=== PATIENT | female | born 1965 | race Caucasian/White ===

== ENCOUNTER 2017-04-21 22:06 | Emergency (ER) | payer MEDICAID ==
[~2017-04-21] VITALS: Ht 154.9 cm; Wt 59.0 kg
[2017-04-21 22:35] VITALS: BP 154/88
== END 2017-04-22 00:56 | disposition left against medical advice (07) ==
LOC: EDBD 22:06 → ER 22:17
DX: R51 Headache (principal); I10 Essential (primary) hypertension; Z53.21 Procedure and treatment not carried out due to patient leaving prior to being seen by health care provider

== ENCOUNTER 2017-04-22 01:41 | Emergency (ER) | payer MEDICAID ==
[~2017-04-22] VITALS: Ht 154.9 cm; Wt 59.0 kg
[2017-04-22] MEDS ORDERED: SODIUM CHLORIDE 0.9% 1,000 ML IV ONE (07:32)
[2017-04-22 08:50] LABS: Basophils # (auto) 0 uL; Basophils % (auto) 0.3 % (0.0-2.0); CONDITION Y; Eosinophils # (auto) 0.2 uL; Eosinophils % (auto) 2.6 % (0.0-7.0); Hemoglobin 15.7 g/dL (12.2-16.2); Lymphocytes # (auto) 2.4 uL; Lymphocytes % (auto) 27.9 % (10.0-50.0); Mean Corpuscular Hemoglobin 30.1 pg (28.0-32.0); Mean Corpuscular Hgb Conc. 34.1 g/dL (32.0-36.0); Mean Corpuscular Volume 88.4 fL (80.0-100.0); Mean Platelet Volume 8.9 fL (7.4-10.4); Monocytes # (auto) 0.4 uL; Monocytes % (auto) 4.8 % (0.0-12.0); Neutrophils # (auto) 5.6 uL; Neutrophils % (auto) 64.4 % (37.0-80.0); Platelet Count (auto) 179 10^3/uL (140-450); Red Cell Distribution Width 12.8 % (11.6-16.0); White Blood Cell 8.7 10^3/uL (4.4-10.8)
[2017-04-22 09:50] LABS: Urine Bilirubin Negative (Negative); Urine Blood Negative /uL (Negative); Urine Color Yellow (Yellow); Urine Glucose Normal (Normal); Urine Ketone Negative (Negative); Urine Mucus FEW (None Seen); Urine Nitrite Negative (Negative); Urine RBC 1 /hpf (0 - 4); Urine Squamous Epithelial Cell FEW /hpf (<5); Urine Urobilinogen Normal (Negative)
[2017-04-22 10:15] LABS: Albumin 3.5 g/dL (3.4-5.0); BUN/Creatinine Ratio 17.9; Bilirubin, Total 0.6 mg/dL (0.2-1.0); Calcium 8.2 mg/dL (8.5-10.1); Magnesium 2.4 mg/dL (1.6-2.6); Potassium 3.7 mmol/L (3.5-5.1); Total Protein 6.4 g/dL (6.4-8.2)
[2017-04-22 12:33] VITALS: BP 140/96
== END 2017-04-22 12:37 | disposition home or self-care (01) ==
LOC: ER 01:41
DX: R07.89 Other chest pain (principal); F31.9 Bipolar disorder, unspecified; F12.10 Cannabis abuse, uncomplicated; F15.10 Other stimulant abuse, uncomplicated; F17.210 Nicotine dependence, cigarettes, uncomplicated; I10 Essential (primary) hypertension; Z88.6 Allergy status to analgesic agent
CPT/HCPCS: 36415; 71020; 80053; 80307; 81001; 83735; 84443; 84484; 85025; 99285; J7030

== ENCOUNTER 2024-01-09 20:05 | Emergency (ER) | payer MEDICAID ==
[~2024-01-09] VITALS: Ht 154.9 cm; Wt 68.2 kg
[2024-01-09 21:34] VITALS: BP 164/98; PULSE 100; RESP 18; TEMP 98; O2SAT 95
[2024-01-09] MEDS: HYDROcodone-ACET 5/325MG TAB PO ONE (21:38)
[2024-01-09] MEDS ORDERED: ACE3T PO (22:28)
== END 2024-01-09 23:15 | disposition home or self-care (01) ==
LOC: ER 20:05
DX: M25.531 Pain in right wrist (principal); I10 Essential (primary) hypertension; F17.210 Nicotine dependence, cigarettes, uncomplicated; Z88.5 Allergy status to narcotic agent
CPT/HCPCS: 29125; 73110